=== PATIENT | male | born 1980 ===

== ENCOUNTER 2025-08-30 10:23 | Outpatient (REF) | payer SELFPAY ==
[2025-08-30 10:31] LABS: MANUAL DIFF FLAG NO
[2025-08-30 10:52] LABS: Hematocrit 44.2 % (42.0-52.0); Hemoglobin 15.1 g/dl (14.0-18.0); Imm Gran Abs Auto 0.03 X10*3/uL (0.00-0.03); Imm Gran Pct Auto 0.4 % (0.0-0.4); Lymphocytes Absolute Auto 1.3 X10*3/uL (1.2-4.9); Mean Corpuscular HGB Conc 34.2 g/dl (31.0-36.0); Mean Corpuscular Hemoglobin 32.0 pg (27.0-33.0); Mean Corpuscular Volume 93.6 fL (80.0-98.0); NRBC Abs Auto 0.000 X10*3/uL (0.0-0.012); NRBC Pct Auto 0.0 /100WBC (0.0-0.2); Platelet Count 146 X10*3/uL (160-400); Red Blood Count 4.72 X10*6/uL (4.60-5.80); White Blood Count 8.4 X10*3/uL (4.8-10.8)
[2025-08-30 11:12] LABS: Carbamazepine Tegretol 8.7 mcg/mL (5.0-12.0)
[2025-08-30 11:14] LABS: Albumin Level 3.8 g/dL (3.5-5.0); Alkaline Phosphatase 116 U/L (39-117); Anion Gap 13 (12-20); Aspartate Amino Transferase 29 U/L (5-37); Blood Urea Nitrogen 9 mg/dL (9-16); Calcium 8.9 mg/dL (8.4-10.2); Carbon Dioxide 22 mmol/L (22-29); Chloride 107 mmol/L (96-108); Estimated Glomerular Filt Rate > 60; Potassium 3.6 mmol/L (3.3-5.1); Sodium 138 mmol/L (135-145); Total Protein 7.9 g/dL (6.5-8.0)
[2025-08-30 11:18] LABS: Prealbumin 27.0 mg/dL (20-40)
[2025-08-30 11:47] LABS: Alanine Aminotransferase 34 U/L (0-40)
== END 2025-08-30 10:24 | disposition home or self-care (01) ==
LOC: HO.WMHL 10:23
PROVIDERS: Visit Provider Nurse Practitioner Family
DX: D64.9 Anemia, unspecified (principal); E46 Unspecified protein-calorie malnutrition
CPT/HCPCS: 36415; 80053; 80156; 80184; 84134; 85025